=== PATIENT | male | born 1965 | race African-American/Black ===

== ENCOUNTER 2017-03-10 19:23 | Emergency (ER) | payer SELFPAY ==
[~2017-03-10] VITALS: Ht 182.9 cm; Wt 86.7 kg
[2017-03-10 20:56] LABS: ADD MIUA? NO; BILIRUBIN NEGATIVE; BLOOD NEGATIVE; COLOR YELLOW ((YELLOW)); GLUCOSE (STRIP) NEGATIVE; KETONES NEGATIVE; LEUKOCYTES NEGATIVE; NITRITE NEGATIVE; PROTEIN (STRIP) NEGATIVE; SPECIFIC GRAVITY 1.028 (1.000-1.030); UCUL ADDED? NO; UROBILINOGEN 0.2 MG/DL (0.2-1.0)
[2017-03-10 21:06] LABS: HEMATOCRIT 47.9 % (38.0-50.0); MCH 25.2 PG (29.0-34.0); MCHC 34.7 G/DL (30.0-36.0); MCV 72.7 FL (86-99); MEAN PLAT.VOLUME 9.7 uM^3 (9.0-12.4); PLATELET COUNT 262 K/uL (156-360); RBC DIS.WIDTH-CV 15.2 % (11.8-14.6); RBC DIS.WIDTH-SD 37.2 % (39-53); RED BLOOD COUNT 6.59 M/uL (4.00-5.50); WHITE BLOOD COUNT 13.3 K/uL (4.1-10.2)
[2017-03-10 21:07] LABS: CHLORIDE 103 mEq/L (99-109); POTASSIUM 3.5 mEq/L (3.7-5.4); SODIUM 141 mEq/L (136-147)
[2017-03-10 21:09] LABS: GLUCOSE 103 mg/dL (70-99)
[2017-03-10 21:10] LABS: ANION GAP 6 MEQ/L (2-14)
[2017-03-10 21:11] LABS: TOTAL BILIRUBIN 0.5 mg/dL (0.0-1.0)
[2017-03-10 21:12] LABS: ALKALINE PHOSPHATASE 52 IU/L (3-129)
[2017-03-10 21:13] LABS: GFR ESTIMATE (CALCULATED) > 59 mL/min/
[2017-03-10 21:14] LABS: UREA NITROGEN (BUN) 16 mg/dL (9-23)
[2017-03-10 21:16] LABS: LIPASE 38 U/L (1.0-51.0)
[2017-03-11] MEDS ORDERED: PROTONIX40 MG PO (00:20)
[2017-03-11] MEDS ORDERED: CARAFATE100 MG/ML PO (00:20)
[2017-03-11 00:42] VITALS: BP 163/102
== END 2017-03-11 00:43 | disposition home or self-care (01) ==
LOC: EME 19:23
DX: K29.70 Gastritis, unspecified, without bleeding (principal); I10 Essential (primary) hypertension; F17.200 Nicotine dependence, unspecified, uncomplicated
CPT/HCPCS: 74177; 80053; 81003; 83690; 85027; 99281; 99285; J2270; J2405; J7030